=== PATIENT | female | born 1990 | race Caucasian/White ===

== ENCOUNTER 2021-04-05 12:48 | Inpatient (IN) | payer OTHER, MEDICAID ==
[~2021-04-05] VITALS: Ht 167.6 cm; Wt 72.8 kg
[2021-04-05 14:57] LABS: BASOPHILS % (AUTO) 0.3 % (0.0-2.0); EOSINOPHILS % (AUTO) 0 % (1.0-6.0); HEMATOCRIT 23.4 % (36-46); LYMPHOCYTES # (AUTO) 1.9 K/uL (1.0-4.8); LYMPHOCYTES % (AUTO) 36.2 % (22.0-44.0); MEAN CORPUSCULAR HEMOGLOBIN 29.1 pg (26.0-34.0); MEAN CORPUSCULAR HGB CONC 34.4 G/dL (31.0-37.0); MEAN CORPUSCULAR VOLUME 85 fL (80-100); MONOCYTES # (AUTO) 0.5 K/uL (0.1-1.0); MONOCYTES % (AUTO) 10.4 % (2.0-9.0); NEUTROPHILS # (AUTO) 2.8 K/uL (1.8-7.7); NEUTROPHILS % (AUTO) 53.1 % (40.0-70.0); PLATELET COUNT (AUTO) 95 K/uL (150-450); RED BLOOD CELL COUNT(AUTO) 2.76 MIL/uL (4.00-5.20); RED CELL DISTRIBUTION WIDTH 16.5 % (11.5-14.5)
[2021-04-05 15:14] LABS: ANION GAP 12 mmol/L (8-16); CALCIUM, TOTAL 8.5 mg/dL (8.8-10.5); CARBON DIOXIDE 24 mmol/L (22-29); CHLORIDE 100 mmol/L (98-107); CREATININE 1.05 mg/dL (0.60-1.30); GLOMERULAR FILTR. RATE CALC > 60 mL/min (>60); GLUCOSE,RANDOM 116 mg/dL (70-110); POTASSIUM 4.1 mmol/L (3.5-5.1); SODIUM SERUM 136 mmol/L (136-145); UREA NITROGEN, BLOOD 11 mg/dL (7-18)
[2021-04-05 15:19] LABS: LACTIC ACID 1.3 mmol/L (0.4-2.0)
[2021-04-05 15:21] LABS: PLATELET MORPHOLOGY COMMENT LARGE PLTS PRESENT
[2021-04-05 15:22] LABS: PROTHROMBIN TIME 11.1 SEC (9.4-11.6)
[2021-04-05 15:36] LABS: ALANINE AMINOTRANSFERASE 29 U/L (12-78); ALKALINE PHOSPHATASE 138 U/L (46-116); ASPARTATE AMINOTRANSFERASE 46 U/L (15-37); BILIRUBIN,TOTAL 3.2 mg/dL (0.1-1.0); CREATINE KINASE, TOTAL ONLY 23 U/L (26-192); TOTAL PROTEIN, SERUM 8.1 g/dL (6.4-8.2)
[2021-04-05 16:12] LABS: HCG,QUANTITATIVE < 1 mIU/mL (0-6); THYROID STIMULATING HORMONE 1.37 uIU/mL (0.36-3.74)
[2021-04-05 16:41] LABS: APPEARANCE,URINE CLEAR (CLEAR); BILIRUBIN,URINE NEGATIVE (NEGATIVE); GLUCOSE, URINE (UA) NEGATIVE (NEGATIVE); KETONES,URINE NEGATIVE (NEGATIVE); LEUKOCYTE ESTERASE ,URINE SMALL (NEGATIVE); NITRATE,URINE NEGATIVE (NEGATIVE); OCCULT BLOOD,URINE NEGATIVE (NEGATIVE); PROTEIN,URINE NEGATIVE (NEGATIVE)
[2021-04-05 16:44] LABS: LIPASE 178 U/L (73-393)
[2021-04-05 16:50] LABS: BACTERIA,URINE Few /HPF (None Seen); RBC,URINE 0-2 /HPF (0-2); SQUAMOUS EPITHELIAL CELL,UR Few /LPF (None Seen)
[2021-04-05 17:24] LABS: INFLUENZA TYPE A NEGATIVE FOR TYPE A (NEGATIVE); INFLUENZA TYPE B NEGATIVE FOR TYPE B (NEGATIVE)
[2021-04-05 18:28] LABS: COVID AG,FIA SOURCE NASOPHARYNGEAL
[2021-04-05] MEDS ORDERED: ONDANSETRON HCL 4 MG/2 ML VIAL IVP PRN (20:30)
[2021-04-05] MEDS ORDERED: NITROFURANTOIN/NITROFURAN MAC 100 MG CAPSULE [MACROBID] PO ONE (20:45)
[2021-04-05 21:06] LABS: BILIRUBIN,DIRECT 0.7 mg/dL (0.00-0.20); BILIRUBIN,TOTAL 2.4 mg/dL (0.1-1.0)
[2021-04-05] MEDS: HEPARIN SODIUM,PORCINE 5,000 UNITS/ML VIAL SQ SCH (23:32)
[2021-04-06] MEDS ORDERED: RINGERS LACTATED IV ONE (06:45)
[2021-04-06] MEDS: ACETAMINOPHEN 325 MG TABLET PO PRN (06:50)
[2021-04-06] MEDS ORDERED: MetroNIDAZOLE 500 MG TABLET PO SCH (08:00)
[2021-04-06] MEDS: DOXYCYCLINE HYCLATE 100 MG TABLET PO SCH ×2 (09:13→20:09)
[2021-04-06] MEDS: HEPARIN SODIUM,PORCINE 5,000 UNITS/ML VIAL SQ SCH ×2 (09:14→16:11)
[2021-04-06] MEDS: RINGERS SOLUTION,LACTATED 1,000 ML IV SCH ×2 (09:16→13:50)
[2021-04-06] MEDS: CefTRIAXone 1 GM/DEXTROSE 50 ML IV SCH (09:17)
[2021-04-06 14:22] LABS: PATHOLOGY REVIEW, DIFF YES
[2021-04-06] MEDS ORDERED: HYDROXYCHLOROQUINE SULFATE 200 MG TABLET PO ONE ×2 (15:00→21:00)
[2021-04-06 15:51] VITALS: BP 113/58
[2021-04-06 19:20] VITALS: BP 91/52
[2021-04-07] VITALS (17 sets, daily range): BP systolic 83–105; BP diastolic 50–63
[2021-04-07] MEDS: RINGERS SOLUTION,LACTATED 1,000 ML IV SCH ×2 (00:16→14:45)
[2021-04-07] MEDS: HEPARIN SODIUM,PORCINE 5,000 UNITS/ML VIAL SQ SCH ×3 (00:16→14:54)
[2021-04-07 05:07] LABS: HEPATITIS C AB (EIA) 0.2 s/co ratio (0.0-0.9); HIV 1-2 SCREEN 4TH GEN W/RFLX Non Reactive (Non Reactive)
[2021-04-07 08:06] LABS: ALANINE AMINOTRANSFERASE 20 U/L (12-78); ALBUMIN 2.2 g/dL (3.4-5.0); ALKALINE PHOSPHATASE 88 U/L (46-116); ANION GAP 4 mmol/L (8-16); ASPARTATE AMINOTRANSFERASE 29 U/L (15-37); BILIRUBIN,TOTAL 1.7 mg/dL (0.1-1.0); CARBON DIOXIDE 27 mmol/L (22-29); CHLORIDE 104 mmol/L (98-107); CREATININE 0.94 mg/dL (0.60-1.30); GLOMERULAR FILTR. RATE CALC > 60 mL/min (>60); GLUCOSE,RANDOM 94 mg/dL (70-110); LACTATE DEHYDROGENASE 414 U/L (81-234); MEAN CORPUSCULAR HEMOGLOBIN 29.2 pg (26.0-34.0); MEAN CORPUSCULAR VOLUME 86 fL (80-100); PLATELET COUNT (AUTO) 90 K/uL (150-450); POTASSIUM 3.8 mmol/L (3.5-5.1); RED BLOOD CELL COUNT(AUTO) 1.92 MIL/uL (4.00-5.20); RED CELL DISTRIBUTION WIDTH 16.8 % (11.5-14.5); SODIUM SERUM 135 mmol/L (136-145); TOTAL PROTEIN, SERUM 6.2 g/dL (6.4-8.2); UREA NITROGEN, BLOOD 7 mg/dL (7-18)
[2021-04-07] MEDS: DOXYCYCLINE HYCLATE 100 MG TABLET PO SCH (08:13)
[2021-04-07 08:18] LABS: HEMATOCRIT 16.5 % (36-46); HEMOGLOBIN 5.6 g/dL (12.0-16.0)
[2021-04-07 09:25] LABS: BAND NEUTROPHILS % (MANUAL) 1 % (0-5); LYMPHOCYTES % (MANUAL) 49 % (22-44); MONOCYTES % (MANUAL) 4 % (2-9); SEGMENTED NEUTROPHILS % 46 % (40-70)
[2021-04-07 09:29] LABS: BASOPHILS % (AUTO) 0.8 % (0.0-2.0); EOSINOPHILS % (AUTO) 0.5 % (1.0-6.0); LYMPHOCYTES # (AUTO) 1.1 K/uL (1.0-4.8); LYMPHOCYTES % (AUTO) 43.7 % (22.0-44.0); MEAN CORPUSCULAR HEMOGLOBIN 28.9 pg (26.0-34.0); MEAN CORPUSCULAR HGB CONC 33.9 G/dL (31.0-37.0); MEAN CORPUSCULAR VOLUME 85 fL (80-100); MONOCYTES # (AUTO) 0.3 K/uL (0.1-1.0); MONOCYTES % (AUTO) 12.9 % (2.0-9.0); NEUTROPHILS % (AUTO) 42.1 % (40.0-70.0); PLATELET COUNT (AUTO) 93 K/uL (150-450); RED BLOOD CELL COUNT(AUTO) 2.06 MIL/uL (4.00-5.20); RED CELL DISTRIBUTION WIDTH 16.9 % (11.5-14.5)
[2021-04-07 09:32] LABS: HEMATOCRIT 17.5 % (36-46); HEMOGLOBIN 5.9 g/dL (12.0-16.0)
[2021-04-07] MEDS ORDERED: SODIUM CHLORIDE 0.9% 250 ML IV ONE (09:35)
[2021-04-07] MEDS: CefTRIAXone 1 GM/DEXTROSE 50 ML IV SCH (09:43)
[2021-04-07] MEDS ORDERED: SODIUM CHLORIDE 0.9% 500 ML IV ONE (10:55)
[2021-04-07] MEDS: ACETAMINOPHEN 325 MG TABLET PO PRN (14:54)
[2021-04-07] MEDS ORDERED: HYDROXYCHLOROQUINE SULFATE 200 MG TABLET PO SCH (15:00)
[2021-04-07 18:21] LABS: BASOPHILS % (AUTO) 0.5 % (0.0-2.0); EOSINOPHILS % (AUTO) 0.6 % (1.0-6.0); HEMATOCRIT 24.3 % (36-46); HEMOGLOBIN 8.3 g/dL (12.0-16.0); LYMPHOCYTES # (AUTO) 1.6 K/uL (1.0-4.8); LYMPHOCYTES % (AUTO) 48.3 % (22.0-44.0); MEAN CORPUSCULAR HEMOGLOBIN 28.9 pg (26.0-34.0); MEAN CORPUSCULAR HGB CONC 34.1 G/dL (31.0-37.0); MEAN CORPUSCULAR VOLUME 85 fL (80-100); MONOCYTES # (AUTO) 0.4 K/uL (0.1-1.0); MONOCYTES % (AUTO) 13.2 % (2.0-9.0); NEUTROPHILS # (AUTO) 1.3 K/uL (1.8-7.7); NEUTROPHILS % (AUTO) 37.4 % (40.0-70.0); PLATELET COUNT (AUTO) 110 K/uL (150-450); RED BLOOD CELL COUNT(AUTO) 2.87 MIL/uL (4.00-5.20); RED CELL DISTRIBUTION WIDTH 17.3 % (11.5-14.5)
[2021-04-07 18:33] LABS: D-DIMER 1.18 mg/L FEU (0.00-0.50); INR 1.1 (0.9-1.1); PROTHROMBIN TIME 11.3 SEC (9.4-11.6)
[2021-04-07 21:21] LABS: GLUCOSE,POINT OF CARE 89 MG/DL (70-110)
[2021-04-07 23:41] LABS: GLUCOSE,POINT OF CARE 85 MG/DL (70-110)
[2021-04-08] VITALS (7 sets, daily range): BP systolic 82–117; BP diastolic 51–63
[2021-04-08] MEDS: HEPARIN SODIUM,PORCINE 5,000 UNITS/ML VIAL SQ SCH ×4 (00:54→23:58)
[2021-04-08] MEDS: RINGERS SOLUTION,LACTATED 1,000 ML IV SCH ×3 (00:55→23:02)
[2021-04-08 01:06] LABS: GLU 6-PHOSPATE DEHYDRO-RBC 2.06 x10E6/uL (3.77-5.28)
[2021-04-08] MEDS: CefTRIAXone 1 GM/DEXTROSE 50 ML IV SCH (06:13)
[2021-04-08 06:15] LABS: BASOPHILS % (AUTO) 0.5 % (0.0-2.0); EOSINOPHILS % (AUTO) 2.2 % (1.0-6.0); HEMATOCRIT 24.2 % (36-46); HEMOGLOBIN 8.4 g/dL (12.0-16.0); LYMPHOCYTES # (AUTO) 1.7 K/uL (1.0-4.8); LYMPHOCYTES % (AUTO) 46.4 % (22.0-44.0); MEAN CORPUSCULAR HEMOGLOBIN 29.6 pg (26.0-34.0); MEAN CORPUSCULAR HGB CONC 34.5 G/dL (31.0-37.0); MEAN CORPUSCULAR VOLUME 86 fL (80-100); MONOCYTES # (AUTO) 0.4 K/uL (0.1-1.0); MONOCYTES % (AUTO) 10.5 % (2.0-9.0); NEUTROPHILS # (AUTO) 1.4 K/uL (1.8-7.7); NEUTROPHILS % (AUTO) 40.4 % (40.0-70.0); PLATELET COUNT (AUTO) 120 K/uL (150-450); RED BLOOD CELL COUNT(AUTO) 2.82 MIL/uL (4.00-5.20)
[2021-04-08 06:21] LABS: GLUCOSE,POINT OF CARE 75 MG/DL (70-110)
[2021-04-08 06:37] LABS: ALANINE AMINOTRANSFERASE 18 U/L (12-78); ALBUMIN 2.3 g/dL (3.4-5.0); ALKALINE PHOSPHATASE 85 U/L (46-116); ANION GAP 5 mmol/L (8-16); ASPARTATE AMINOTRANSFERASE 31 U/L (15-37); BILIRUBIN,TOTAL 1.2 mg/dL (0.1-1.0); C-REACTIVE PROTEIN QUANT 7.12 mg/dL (0.00-0.30); CALCIUM, TOTAL 8.1 mg/dL (8.8-10.5); CARBON DIOXIDE 27 mmol/L (22-29); CHLORIDE 105 mmol/L (98-107); CREATININE 0.88 mg/dL (0.60-1.30); GLOMERULAR FILTR. RATE CALC > 60 mL/min (>60); GLUCOSE,RANDOM 91 mg/dL (70-110); LACTATE DEHYDROGENASE 478 U/L (81-234); POTASSIUM 4.3 mmol/L (3.5-5.1); SODIUM SERUM 137 mmol/L (136-145); TOTAL PROTEIN, SERUM 6.5 g/dL (6.4-8.2); UREA NITROGEN, BLOOD 8 mg/dL (7-18)
[2021-04-08 07:38] LABS: LACTIC ACID < 0.3 mmol/L (0.4-2.0)
[2021-04-08] MEDS ORDERED: [UNRECOGNIZED DRUG - OTHER] IVP SCH (12:00)
[2021-04-08] MEDS: [UNRECOGNIZED DRUG - OTHER] IVP SCH ×2 (12:27→23:59)
[2021-04-08 12:52] LABS: GLUCOSE,POINT OF CARE 114 MG/DL (70-110)
[2021-04-08] MEDS: ALBUMIN HUMAN 25%-25GM/100ML 100 ML IV SCH ×2 (15:15→20:18)
[2021-04-09] VITALS (8 sets, daily range): BP systolic 90–101; BP diastolic 50–60
[2021-04-09] MEDS: ALBUMIN HUMAN 25%-25GM/100ML 100 ML IV SCH ×4 (02:43→21:31)
[2021-04-09] MEDS: RINGERS SOLUTION,LACTATED 1,000 ML IV SCH ×3 (05:57→23:46)
[2021-04-09 08:34] LABS: BASOPHILS % (AUTO) 0.4 % (0.0-2.0); EOSINOPHILS % (AUTO) 0.9 % (1.0-6.0); HEMATOCRIT 26.8 % (36-46); HEMOGLOBIN 9.2 g/dL (12.0-16.0); LYMPHOCYTES # (AUTO) 1.9 K/uL (1.0-4.8); LYMPHOCYTES % (AUTO) 52.8 % (22.0-44.0); MEAN CORPUSCULAR HEMOGLOBIN 29.2 pg (26.0-34.0); MEAN CORPUSCULAR HGB CONC 34.4 G/dL (31.0-37.0); MEAN CORPUSCULAR VOLUME 85 fL (80-100); MONOCYTES # (AUTO) 0.2 K/uL (0.1-1.0); MONOCYTES % (AUTO) 5.8 % (2.0-9.0); NEUTROPHILS # (AUTO) 1.4 K/uL (1.8-7.7); NEUTROPHILS % (AUTO) 40.1 % (40.0-70.0); PLATELET COUNT (AUTO) 181 K/uL (150-450); RED BLOOD CELL COUNT(AUTO) 3.15 MIL/uL (4.00-5.20); RED CELL DISTRIBUTION WIDTH 17.6 % (11.5-14.5)
[2021-04-09 08:42] LABS: ALANINE AMINOTRANSFERASE 36 U/L (12-78); ALKALINE PHOSPHATASE 92 U/L (46-116); ANION GAP 8 mmol/L (8-16); ASPARTATE AMINOTRANSFERASE 64 U/L (15-37); BILIRUBIN,TOTAL 1.1 mg/dL (0.1-1.0); C-REACTIVE PROTEIN QUANT 4.24 mg/dL (0.00-0.30); CALCIUM, TOTAL 8.9 mg/dL (8.8-10.5); CARBON DIOXIDE 25 mmol/L (22-29); CHLORIDE 103 mmol/L (98-107); CREATININE 0.99 mg/dL (0.60-1.30); GLOMERULAR FILTR. RATE CALC > 60 mL/min (>60); GLUCOSE,RANDOM 93 mg/dL (70-110); LACTATE DEHYDROGENASE 476 U/L (81-234); POTASSIUM 4.2 mmol/L (3.5-5.1); SODIUM SERUM 136 mmol/L (136-145); TOTAL PROTEIN, SERUM 8.3 g/dL (6.4-8.2); UREA NITROGEN, BLOOD 11 mg/dL (7-18)
[2021-04-09] MEDS: HEPARIN SODIUM,PORCINE 5,000 UNITS/ML VIAL SQ SCH ×3 (09:06→23:43)
[2021-04-09] MEDS: [UNRECOGNIZED DRUG - OTHER] IVP SCH (12:03)
[2021-04-10] MEDS: ALBUMIN HUMAN 25%-25GM/100ML 100 ML IV SCH ×4 (02:46→20:27)
[2021-04-10 03:37] VITALS: BP 95/56
[2021-04-10 07:36] VITALS: BP 96/56
[2021-04-10 08:02] LABS: BASOPHILS % (AUTO) 1.4 % (0.0-2.0); EOSINOPHILS % (AUTO) 1.9 % (1.0-6.0); HEMATOCRIT 24.4 % (36-46); HEMOGLOBIN 8.5 g/dL (12.0-16.0); LYMPHOCYTES # (AUTO) 1.5 K/uL (1.0-4.8); LYMPHOCYTES % (AUTO) 58.3 % (22.0-44.0); MEAN CORPUSCULAR HEMOGLOBIN 29.5 pg (26.0-34.0); MEAN CORPUSCULAR HGB CONC 34.9 G/dL (31.0-37.0); MEAN CORPUSCULAR VOLUME 85 fL (80-100); MONOCYTES # (AUTO) 0.2 K/uL (0.1-1.0); MONOCYTES % (AUTO) 7.3 % (2.0-9.0); NEUTROPHILS # (AUTO) 0.8 K/uL (1.8-7.7); NEUTROPHILS % (AUTO) 31.1 % (40.0-70.0); PLATELET COUNT (AUTO) 183 K/uL (150-450); RED BLOOD CELL COUNT(AUTO) 2.89 MIL/uL (4.00-5.20); RED CELL DISTRIBUTION WIDTH 17.3 % (11.5-14.5)
[2021-04-10] MEDS: HEPARIN SODIUM,PORCINE 5,000 UNITS/ML VIAL SQ SCH ×3 (08:06→23:40)
[2021-04-10 09:03] LABS: ALANINE AMINOTRANSFERASE 75 U/L (12-78); ALBUMIN 4.5 g/dL (3.4-5.0); ALKALINE PHOSPHATASE 99 U/L (46-116); ANION GAP 9 mmol/L (8-16); ASPARTATE AMINOTRANSFERASE 131 U/L (15-37); BILIRUBIN,TOTAL 1.5 mg/dL (0.1-1.0); C-REACTIVE PROTEIN QUANT 2.03 mg/dL (0.00-0.30); CALCIUM, TOTAL 9.1 mg/dL (8.8-10.5); CARBON DIOXIDE 26 mmol/L (22-29); CHLORIDE 103 mmol/L (98-107); CREATININE 0.85 mg/dL (0.60-1.30); GLOMERULAR FILTR. RATE CALC > 60 mL/min (>60); GLUCOSE,RANDOM 87 mg/dL (70-110); LACTATE DEHYDROGENASE 453 U/L (81-234); POTASSIUM 4.5 mmol/L (3.5-5.1); SODIUM SERUM 138 mmol/L (136-145); UREA NITROGEN, BLOOD 13 mg/dL (7-18)
[2021-04-10 11:16] VITALS: BP 101/52
[2021-04-10] MEDS: RINGERS SOLUTION,LACTATED 1,000 ML IV SCH ×2 (13:06→23:41)
[2021-04-10 14:56] VITALS: BP 102/56
[2021-04-10] MEDS: PRIMAQUINE PHOSPHATE 26.3 MG [15 MG BASE] TABLET PO SCH (17:42)
[2021-04-10 19:30] VITALS: BP 96/53
[2021-04-11 00:11] VITALS: BP 95/53
[2021-04-11 03:56] VITALS: BP 106/61
[2021-04-11] MEDS: ALBUMIN HUMAN 25%-25GM/100ML 100 ML IV SCH ×3 (04:11→15:46)
[2021-04-11 07:40] VITALS: BP 101/54
[2021-04-11 08:34] LABS: BASOPHILS % (AUTO) 0.6 % (0.0-2.0); EOSINOPHILS % (AUTO) 1.5 % (1.0-6.0); HEMATOCRIT 25.6 % (36-46); HEMOGLOBIN 8.8 g/dL (12.0-16.0); LYMPHOCYTES # (AUTO) 1.2 K/uL (1.0-4.8); LYMPHOCYTES % (AUTO) 63.2 % (22.0-44.0); MEAN CORPUSCULAR HEMOGLOBIN 28.7 pg (26.0-34.0); MEAN CORPUSCULAR HGB CONC 34.3 G/dL (31.0-37.0); MEAN CORPUSCULAR VOLUME 84 fL (80-100); MONOCYTES # (AUTO) 0.2 K/uL (0.1-1.0); MONOCYTES % (AUTO) 8.7 % (2.0-9.0); NEUTROPHILS # (AUTO) 0.5 K/uL (1.8-7.7); PLATELET COUNT (AUTO) 210 K/uL (150-450); RED BLOOD CELL COUNT(AUTO) 3.06 MIL/uL (4.00-5.20); RED CELL DISTRIBUTION WIDTH 16.6 % (11.5-14.5)
[2021-04-11] MEDS: HEPARIN SODIUM,PORCINE 5,000 UNITS/ML VIAL SQ SCH ×2 (08:39→15:58)
[2021-04-11] MEDS: PRIMAQUINE PHOSPHATE 26.3 MG [15 MG BASE] TABLET PO SCH (08:44)
[2021-04-11 08:51] LABS: ALANINE AMINOTRANSFERASE 76 U/L (12-78); ALBUMIN 5.8 g/dL (3.4-5.0); ALKALINE PHOSPHATASE 81 U/L (46-116); ANION GAP 11 mmol/L (8-16); ASPARTATE AMINOTRANSFERASE 91 U/L (15-37); BILIRUBIN,TOTAL 1.6 mg/dL (0.1-1.0); CARBON DIOXIDE 27 mmol/L (22-29); CHLORIDE 102 mmol/L (98-107); CREATININE 0.87 mg/dL (0.60-1.30); GLOMERULAR FILTR. RATE CALC > 60 mL/min (>60); GLUCOSE,RANDOM 91 mg/dL (70-110); LACTATE DEHYDROGENASE 296 U/L (81-234); POTASSIUM 4.2 mmol/L (3.5-5.1); SODIUM SERUM 140 mmol/L (136-145); TOTAL PROTEIN, SERUM 8.9 g/dL (6.4-8.2); UREA NITROGEN, BLOOD 11 mg/dL (7-18)
[2021-04-11 11:27] VITALS: BP 101/63
[2021-04-11] MEDS: RINGERS SOLUTION,LACTATED 1,000 ML IV SCH ×3 (11:47→20:18)
[2021-04-11] MEDS ORDERED: HYDROXYCHLOROQUINE SULFATE 200 MG TABLET PO ONE ×2 (13:00→21:00)
[2021-04-11 15:52] VITALS: BP 98/58
[2021-04-11 19:40] VITALS: BP 100/66
[2021-04-12 00:05] VITALS: BP 91/55
[2021-04-12 04:45] VITALS: BP 101/61
[2021-04-12] MEDS: RINGERS SOLUTION,LACTATED 1,000 ML IV SCH ×3 (05:52→21:05)
[2021-04-12 08:18] VITALS: BP 92/60
[2021-04-12] MEDS: PRIMAQUINE PHOSPHATE 26.3 MG [15 MG BASE] TABLET PO SCH (10:30)
[2021-04-12] MEDS: HEPARIN SODIUM,PORCINE 5,000 UNITS/ML VIAL SQ SCH ×4 (10:31→23:33)
[2021-04-12 11:24] VITALS: BP 95/67
[2021-04-12] MEDS: HYDROXYCHLOROQUINE SULFATE 200 MG TABLET PO SCH (13:36)
[2021-04-12 15:32] VITALS: BP 98/66
[2021-04-12 21:34] VITALS: BP 89/60
[2021-04-13] VITALS (7 sets, daily range): BP systolic 81–104; BP diastolic 55–64
[2021-04-13] MEDS: RINGERS SOLUTION,LACTATED 1,000 ML IV SCH ×3 (05:43→22:28)
[2021-04-13] MEDS: HEPARIN SODIUM,PORCINE 5,000 UNITS/ML VIAL SQ SCH ×2 (08:00→16:00)
[2021-04-13 08:04] LABS: EOSINOPHILS % (AUTO) 2.5 % (1.0-6.0); HEMATOCRIT 25.1 % (36-46); HEMOGLOBIN 8.6 g/dL (12.0-16.0); LYMPHOCYTES # (AUTO) 1.8 K/uL (1.0-4.8); LYMPHOCYTES % (AUTO) 50.7 % (22.0-44.0); MEAN CORPUSCULAR HEMOGLOBIN 28.7 pg (26.0-34.0); MEAN CORPUSCULAR HGB CONC 34.3 G/dL (31.0-37.0); MEAN CORPUSCULAR VOLUME 84 fL (80-100); MONOCYTES # (AUTO) 0.3 K/uL (0.1-1.0); MONOCYTES % (AUTO) 8.3 % (2.0-9.0); NEUTROPHILS # (AUTO) 1.3 K/uL (1.8-7.7); NEUTROPHILS % (AUTO) 37.5 % (40.0-70.0); PLATELET COUNT (AUTO) 258 K/uL (150-450); RED BLOOD CELL COUNT(AUTO) 2.99 MIL/uL (4.00-5.20); RED CELL DISTRIBUTION WIDTH 16.5 % (11.5-14.5)
[2021-04-13 08:14] LABS: ALANINE AMINOTRANSFERASE 73 U/L (12-78); ALBUMIN 5.3 g/dL (3.4-5.0); ALKALINE PHOSPHATASE 71 U/L (46-116); ANION GAP 10 mmol/L (8-16); ASPARTATE AMINOTRANSFERASE 53 U/L (15-37); BILIRUBIN,TOTAL 0.9 mg/dL (0.1-1.0); CALCIUM, TOTAL 9.9 mg/dL (8.8-10.5); CARBON DIOXIDE 27 mmol/L (22-29); CHLORIDE 101 mmol/L (98-107); CREATININE 0.93 mg/dL (0.60-1.30); GLOMERULAR FILTR. RATE CALC > 60 mL/min (>60); GLUCOSE,RANDOM 88 mg/dL (70-110); POTASSIUM 4.3 mmol/L (3.5-5.1); SODIUM SERUM 138 mmol/L (136-145); TOTAL PROTEIN, SERUM 8.5 g/dL (6.4-8.2); UREA NITROGEN, BLOOD 12 mg/dL (7-18)
[2021-04-13] MEDS: HYDROXYCHLOROQUINE SULFATE 200 MG TABLET PO SCH (08:53)
[2021-04-13] MEDS: PRIMAQUINE PHOSPHATE 26.3 MG [15 MG BASE] TABLET PO SCH (08:54)
[2021-04-14 01:32] VITALS: BP 82/56
[2021-04-14] MEDS: RINGERS SOLUTION,LACTATED 1,000 ML IV SCH ×3 (05:57→22:14)
[2021-04-14 06:47] VITALS: BP 92/57
[2021-04-14] MEDS: PRIMAQUINE PHOSPHATE 26.3 MG [15 MG BASE] TABLET PO SCH (07:58)
[2021-04-14 08:14] VITALS: BP 90/64
[2021-04-14] MEDS: HEPARIN SODIUM,PORCINE 5,000 UNITS/ML VIAL SQ SCH ×4 (08:14→23:50)
[2021-04-14 11:19] VITALS: BP 94/75
[2021-04-14 16:04] VITALS: BP 93/55
[2021-04-14 19:20] VITALS: BP 102/69
[2021-04-15] VITALS (7 sets, daily range): BP systolic 95–104; BP diastolic 50–64
[2021-04-15] MEDS: RINGERS SOLUTION,LACTATED 1,000 ML IV SCH ×3 (06:11→22:25)
[2021-04-15] MEDS: HEPARIN SODIUM,PORCINE 5,000 UNITS/ML VIAL SQ SCH ×2 (08:22→16:38)
[2021-04-15] MEDS: PRIMAQUINE PHOSPHATE 26.3 MG [15 MG BASE] TABLET PO SCH (08:22)
[2021-04-16] MEDS: HEPARIN SODIUM,PORCINE 5,000 UNITS/ML VIAL SQ SCH ×4 (00:11→23:44)
[2021-04-16 04:16] VITALS: BP 94/51
[2021-04-16] MEDS: PRIMAQUINE PHOSPHATE 26.3 MG [15 MG BASE] TABLET PO SCH (08:16)
[2021-04-16] MEDS: RINGERS SOLUTION,LACTATED 1,000 ML IV SCH ×3 (08:23→22:39)
[2021-04-16 08:35] VITALS: BP 102/68
[2021-04-16 11:39] VITALS: BP 98/60
[2021-04-16 16:25] VITALS: BP 99/56
[2021-04-16 19:36] VITALS: BP 106/54
[2021-04-17 00:24] VITALS: BP 101/59
[2021-04-17 05:26] VITALS: BP 113/61
[2021-04-17] MEDS ORDERED: [UNRECOGNIZED DRUG - CODE] PO ×2 (05:38→05:51)
== END 2021-04-17 07:30 | disposition home or self-care (01) | DRG 812 ==
LOC: EMS 12:51 → 6S 04-06 14:56 → ICU 04-07 12:20 → 5S 04-08 17:50
PROVIDERS: ADMIT Internal Medicine; ATTEND Internal Medicine
PROC: 30233N1 Transfusion of Nonautologous Red Blood Cells into Peripheral Vein, Percutaneous Approach (ICD-10-PCS; principal; 2021-04-07)
DX: D64.9 Anemia, unspecified (principal); B54 Unspecified malaria; N39.0 Urinary tract infection, site not specified; E87.1 Hypo-osmolality and hyponatremia; Z20.822 Contact with and (suspected) exposure to COVID-19; D69.6 Thrombocytopenia, unspecified; K76.9 Liver disease, unspecified; Z98.891 History of uterine scar from previous surgery
CPT/HCPCS: 71045; 76700; 80053; 80074; 81001; 82247; 82248; 82550; 82955; 82962; 83010; 83605; 83615; 83690; 84145; 84439; 84443; 84484; 84702; 85025; 85041; 85379; 85384; 85610; 85730; 86140; 86850; 86900; 86901; 86923; 87040; 87081; 87086; 87207; 87389; 87804; 93005; 99285; G0378; J0696; J1644; J2405; J7040; J7050; J7120; P9016; P9046; Q9967; 36415-L1; 36415-TC